=== PATIENT | male | born 1990 | race Caucasian/White ===

== ENCOUNTER 2020-03-22 03:39 | Emergency (ER) | payer SELFPAY ==
[~2020-03-22] VITALS: Ht 154.9 cm; Wt 64.0 kg
[2020-03-22 03:44] VITALS: BP 147/78
[2020-03-22] MEDS ORDERED: ACETAMINOPHEN 500MG TABLET PO ONE (04:00)
== END 2020-03-22 04:41 | disposition home or self-care (01) ==
LOC: ER 03:39
DX: R51 Headache (principal); Y35.893A Legal intervention involving other specified means, suspect injured, initial encounter; Y93.89 Activity, other specified; Y92.9 Unspecified place or not applicable
CPT/HCPCS: 99283